=== PATIENT | female | born 1990 | race Two or more races ===

== ENCOUNTER 2023-05-28 19:00 | Emergency (ER) | payer OTHER ==
[~2023-05-28] VITALS: Ht 162.6 cm; Wt 80.9 kg
[2023-05-28 19:02] VITALS: BP 144/90; PULSE 95; RESP 18; O2SAT 100
[2023-05-28 19:40] LABS: Basophils # (auto) 0 10 ^3/uL (0-0.2); Basophils % (auto) 0.4 % (0.0-2.0); Eosinophils # (auto) 0.1 10 ^3/uL (0-0.8); Eosinophils % (auto) 1.3 % (0.0-7.0); Hematocrit 41.9 % (36.0-46.0); Hemoglobin 13.8 g/dL (12.2-16.2); Lymphocytes % (auto) 32.7 % (10.0-50.0); Mean Corpuscular Hemoglobin 28.8 pg (28.0-32.0); Mean Corpuscular Hgb Conc. 32.9 g/dL (32.0-36.0); Mean Corpuscular Volume 87.5 fL (80.0-100.0); Monocytes # (auto) 0.9 10 ^3/uL (0-1.3); Monocytes % (auto) 9.9 % (0.0-12.0); Neutrophils # (auto) 5.1 10 ^3/uL (1.6-8.6); Neutrophils % (auto) 55.7 % (37.0-80.0); Red Blood Cells 4.79 10^6/uL (4.0-5.20); Red Cell Distribution Width 14.1 % (11.8-14.3); White Blood Cell 9.1 10^3/uL (4.4-10.8)
[2023-05-28 19:55] LABS: Chloride 105 mmol/L (98-107); Sodium 137 mmol/L (136-145)
[2023-05-28 19:56] LABS: Anion Gap 8 (5-15); Carbon Dioxide 24 mmol/L (20-30)
[2023-05-28 19:57] LABS: Calcium 9.4 mg/dL (8.7-10.4)
[2023-05-28 20:02] LABS: BUN/Creatinine Ratio 5.5 (10.0-20.0); Blood Urea Nitrogen 5 mg/dL (9-23); Glucose 93 mg/dL (74-106)
[2023-05-28 20:04] LABS: Acetaminophen < 2.0 UG/ML (10.0-20.0); Salicylate < 3.0 mg/dL (2.8-20.0)
[2023-05-28 20:14] LABS: Blood Alcohol < 3.0 mg/dL (<10)
[2023-05-28] MEDS ORDERED: QUEtiapine FUMARATE 100 MG TAB PO ONE (20:30)
[2023-05-28 20:57] LABS: Amphetamine Screen, Urine Pos (NEGATIVE); Barbiturate Scree,Urine Neg (NEGATIVE); Benzodiazephine Screen, Urine Neg (NEGATIVE); Cocaine Screen, Urine Neg (NEGATIVE)
[2023-05-28 20:58] LABS: Cannabinoid Screen, Urine Pos (NEGATIVE); Opiate Scree,Urine Neg (NEGATIVE); Phencyclidine Screen, Urine Neg (NEGATIVE)
== END 2023-05-28 21:32 | disposition home or self-care (01) ==
LOC: ER 19:00
DX: S61.512A Laceration without foreign body of left wrist, initial encounter (principal); R45.851 Suicidal ideations; Z79.899 Other long term (current) drug therapy; X78.8XXA Intentional self-harm by other sharp object, initial encounter; Y93.89 Activity, other specified; Y92.89 Other specified places as the place of occurrence of the external cause; Y99.8 Other external cause status
CPT/HCPCS: 36415; 80048; 80307; 80320; 80329; 85025